=== PATIENT | female | born 1980 | race Caucasian/White ===

== ENCOUNTER 2017-06-01 07:40 | Emergency (ER) | payer OTHER ==
[~2017-06-01 07:40] MED LIST: CIPR-344 PO; FAM20 PO; FLUO-202 PO; LACT1CAP6 PO; LOR5 PO; MELO-207 PO; NAP375 PO; NAPR-744 PO; OXYC-865 PO; PER PO; PHEN-580 PO; PRE10 PO; PROM-110 PO
--- NOTE | 2017-06-01 07:43 | ER Report ---
History and Physical Time Seen By MD: 07:43 HPI/ROS CHIEF COMPLAINT: Chest pain HISTORY OF PRESENT ILLNESS: Patient is a 36-year-old female who states she has no medical problems who presents to department with left-sided chest discomfort and the sensation that she can't catch her breath. This began suddenly around 7 AM this morning. She is never experienced this before. She denies any history of heart problems. She denies fevers or chills she denies cough she does report nausea and sensation as if she has to vomit. Patient denies any ill contacts. REVIEW OF SYSTEMS: Constitutional: No fever, no chills. Eyes: No discharge. ENT: No sore throat. Cardiovascular: Chest discomfort Respiratory: Dyspnea Gastrointestinal: Nausea without abdominal pain vomiting or diarrhea Genitourinary: No hematuria. Musculoskeletal: No back pain. Skin: No rashes. Neurological: No headache. Allergies: Coded Allergies: valacyclovir (Verified Allergy, Severe, facial swelling, 06/01/17) Uncoded Allergies: ALEX (Allergy, Severe, UNABLE TO BREATHE, 04/26/07) Home Meds Active Scripts Famotidine (PEPCID) 20 Mg Tablet, 20 MG PO BID, #60 TAB 0 Refills Prov:SPEEDY SULLIVAN MD 06/01/17 Promethazine Hcl (PROMETHAZINE HCL) 25 Mg Tablet, 25 MG PO Q4H Y for NAUSEA/ VOMITING, #12 TAB Prov:MAHENDRA ANNA DO 03/30/16 Reported Medications Fluoxetine Hcl (FLUOXETINE HCL) 20 Mg Capsule, QDAY 06/01/17 Escitalopram Oxalate (ESCITALOPRAM OXALATE) 20 Mg Tablet, QDAY 06/01/17 Lactobacillus Combination No.4 (PROBIOTIC) 1 Each Capsule, 2 EACH PO DAILY, CAPSULE 03/30/16 Discontinued Reported Medications Meloxicam (MELOXICAM) 15 Mg Tablet, 15 MG PO QDAY 03/30/16 Fluoxetine Hcl (PROZAC) 20 Mg Capsule, 20 MG PO QDAY, CAPSULE 03/30/16 Discontinued Scripts Oxycodone Hcl/Acetaminophen (PERCOCET 5-325 MG TABLET) 1 Each Tablet, 1 EACH PO Q4H Y for PAIN, #12 Prov:MAHENDRA ANNA DO 03/30/16 Ciprofloxacin Hcl (CIPRO) 500 Mg Tablet, 500 MG PO BID for infection, #14 Prov:MAHENDRA ANNA DO 03/30/16 Past Medical/Surgical History Patient reports no significant past medical history Hx Smoking: Yes (1 pack daily for 15 years) Smoking Status: Former Smoker Exposure to Second Hand Smoke?: No Hx Substance Use Disorder: No Hx Alcohol Use: No Constitutional Vital Sign - Last 24 Hours 06/01/17 06/01/17 06/01/17 06/01/17 07:40 07:44 07:50 08:00 Temp 98.8 Pulse 108 88 Resp 16 22 B/P (MAP) 128/92 128/92 (104) 114/75 (88) Pulse Ox 100 69 100 O2 Delivery Room Air 06/01/17 06/01/17 06/01/17 06/01/17 08:10 08:15 08:16 08:25 Pulse 70 73 63 Resp 18 15 20 Pulse Ox 99 94 100 O2 Flow Rate 2.0 06/01/17 06/01/17 06/01/17 06/01/17 08:30 08:35 08:45 08:55 Pulse 68 62 66 Resp 13 7 8 B/P (MAP) 118/81 (93) Pulse Ox 100 100 100 06/01/17 06/01/17 06/01/17 06/01/17 09:00 09:05 09:10 09:15 Pulse 66 69 68 Resp 0 11 0 13 B/P (MAP) 119/82 (94) Pulse Ox 100 100 100 100 06/01/17 06/01/17 06/01/17 06/01/17 09:20 09:25 09:30 09:35 Pulse 62 65 65 63 Resp 0 15 11 22 B/P (MAP) 111/65 (80) Pulse Ox 100 100 100 100 06/01/17 06/01/17 06/01/17 06/01/17 09:40 09:45 09:50 09:55 Pulse 67 80 70 67 Resp 16 12 29 19 Pulse Ox 96 96 93 93 06/01/17 06/01/17 06/01/17 06/01/17 10:00 10:05 10:10 10:15 Pulse 73 72 71 75 Resp 0 0 8 8 B/P (MAP) 103/78 (86) Pulse Ox 95 94 96 96 06/01/17 06/01/17 06/01/17 10:20 10:30 10:35 Pulse 75 73 73 Resp 16 15 10 B/P (MAP) 111/76 (88) Pulse Ox 96 96 93 Physical Exam General/Constitutional: Patient is awake, alert, nontoxic and in no acute respiratory distress. Head: Normocephalic and atraumatic. Eyes: Conjunctival clear, Pupils are equal and reactive to light. Extraocular muscles are intact and symmetrical. Sclera are clear and anicteric. Ears:External canals are clear. Tympanic membranes are clear with normal landmarks and light reflex. Nares: No rhinorrhea or bleeding. Turbinates are pink and moist. Oropharyngeal: Mucous membranes are moist. Neck: Supple, no adenopathy. Cardiovascular: Heart is tachycardic but with regular rhythm. Pulmonary: Lungs are clear to auscultation bilaterally. There are no wheezes, rales, or rhonchi. Chest rise is symmetrical Abdomen: Soft, nontender, no guarding or peritoneal signs. Extremities: No gross deformities, No peripheral cyanosis. Able to move all 4 extremities. Neuro: Alert and oriented X3, Skin: No rashes, skin is warm dry and well perfused. Medical Decision Making Data Points Result Diagram: 06/01/17 0745 06/01/17 0745 Laboratory Hematology Test 06/01/17 07:45 06/01/17 10:00 Red Blood Count 4.93 M/uL (4.17-5.56) Mean Corpuscular Volume 95.4 fL (80.0-96.0) Mean Corpuscular Hemoglobin 33.3 pg (26.0-33.0) Mean Corpuscular Hemoglobin Concent 34.9 g/dL (32.0-36.0) Red Cell Distribution Width 13.9 % (11.5-14.5) Mean Platelet Volume 7.4 fL (7.2-11.1) Neutrophils (%) (Auto) 53.6 % (39.4-72.5) Lymphocytes (%) (Auto) 37.1 % (17.6-49.6) Monocytes (%) (Auto) 7.5 % (4.1-12.4) Eosinophils (%) (Auto) 1.1 % (0.4-6.7) Basophils (%) (Auto) 0.7 % (0.3-1.4) Nucleated RBC Relative Count (auto) 0.0 /100WBC Neutrophils # (Auto) 5.2 K/uL (2.0-7.4) Lymphocytes # (Auto) 3.6 K/uL (1.3-3.6) Monocytes # (Auto) 0.7 K/uL (0.3-1.0) Eosinophils # (Auto) 0.1 K/uL (0.0-0.5) Basophils # (Auto) 0.1 K/uL (0.0-0.1) Nucleated RBC Absolute Count (auto) 0.00 K/uL Prothrombin Time 13.2 seconds (12.0-14.4) Prothromb Time International Ratio 1.00 Activated Partial Thromboplast Time 25 seconds (23-35) Sodium Level 139 mmol/L (137-145) Potassium Level 3.4 mmol/L (3.5-5.0) Chloride Level 102 mmol/L (98-107) Carbon Dioxide Level 20 mmol/L (22-31) Blood Urea Nitrogen 18 mg/dl (7-18) Creatinine 1.00 mg/dl (0.52-1.04) Glomerular Filtration Rate Calc > 60.0 Random Glucose 109 mg/dl (75-110) Calcium Level 9.7 mg/dl (8.4-10.2) Total Bilirubin 0.9 mg/dl (0.2-1.3) Aspartate Amino Transf (AST/SGOT) 29 U/L (0-35) Alanine Aminotransferase (ALT/SGPT) 34 U/L (0-56) Alkaline Phosphatase 73 U/L (0-126) Total Protein 8.5 gm/dl (6.3-8.2) Albumin 4.9 g/dl (3.5-5.0) Human Chorionic Gonadotropin, Qual Negative (NEGATIVE) Troponin I < 0.012 ng/ml Chemistry Test 06/01/17 07:45 06/01/17 10:00 White Blood Count 9.7 k/uL (4.5-11.0) Red Blood Count 4.93 M/uL (4.17-5.56) Hemoglobin 16.4 g/dL (12.0-16.0) Hematocrit 47.0 % (34.0-47.0) Mean Corpuscular Volume 95.4 fL (80.0-96.0) Mean Corpuscular Hemoglobin 33.3 pg (26.0-33.0) Mean Corpuscular Hemoglobin Concent 34.9 g/dL (32.0-36.0) Red Cell Distribution Width 13.9 % (11.5-14.5) Platelet Count 436 K/uL (150-450) Mean Platelet Volume 7.4 fL (7.2-11.1) Neutrophils (%) (Auto) 53.6 % (39.4-72.5) Lymphocytes (%) (Auto) 37.1 % (17.6-49.6) Monocytes (%) (Auto) 7.5 % (4.1-12.4) Eosinophils (%) (Auto) 1.1 % (0.4-6.7) Basophils (%) (Auto) 0.7 % (0.3-1.4) Nucleated RBC Relative Count (auto) 0.0 /100WBC Neutrophils # (Auto) 5.2 K/uL (2.0-7.4) Lymphocytes # (Auto) 3.6 K/uL (1.3-3.6) Monocytes # (Auto) 0.7 K/uL (0.3-1.0) Eosinophils # (Auto) 0.1 K/uL (0.0-0.5) Basophils # (Auto) 0.1 K/uL (0.0-0.1) Nucleated RBC Absolute Count (auto) 0.00 K/uL Prothrombin Time 13.2 seconds (12.0-14.4) Prothromb Time International Ratio 1.00 Activated Partial Thromboplast Time 25 seconds (23-35) Glomerular Filtration Rate Calc > 60.0 Calcium Level 9.7 mg/dl (8.4-10.2) Total Bilirubin 0.9 mg/dl (0.2-1.3) Aspartate Amino Transf (AST/SGOT) 29 U/L (0-35) Alanine Aminotransferase (ALT/SGPT) 34 U/L (0-56) Alkaline Phosphatase 73 U/L (0-126) Total Protein 8.5 gm/dl (6.3-8.2) Albumin 4.9 g/dl (3.5-5.0) Human Chorionic Gonadotropin, Qual Negative (NEGATIVE) Troponin I < 0.012 ng/ml Coagulation Test 06/01/17 07:45 Prothrombin Time 13.2 seconds Prothromb Time International Ratio 1.00 Activated Partial Thromboplast Time 25 seconds EKG/Imaging EKG Interpretation EKG shows normal sinus rhythm with a ventricular rate of 82 bpm. No significant evidence of ST segment or T-wave abnormalities. There is no prior EKG to compare to Monitor Interpretation: Normal Sinus Rhythm Imaging FACILITY: [facility] [place] PATIENT NAME: Mica Meehan : 1980 MR: [id number] V: [id number] EXAM DATE: ORDERING PHYSICIAN: SPEEDY SULLIVAN TECHNOLOGIST: Location: [facility] Patient: Mica Meehan : 1980 Visit/Account:[id number] Date of Sevice: 06/01/2017 CHEST PA AND LAT History: Chest pain Comparison none. FINDINGS: Lungs are clear, no effusion. No pneumothorax. Heart size within normal limits. Mediastinal contour within normal limits. IMPRESSION: No evidence of acute cardiopulmonary disease. Report Dictated By: Maximiliano Arguello MD at 06/01/2017 8:19 AM Report E-Signed By: Maximiliano Arguello MD at 06/01/2017 8:19 AM WSN:[id number] ED Course/Re-evaluation Clinical Indication for ER IV: IV Access ED Course 06/01/2017 7:55:51 am patient appears quite anxious and is tachycardic with a heart rate in the 120s. Patient with a sensation that she can't catch her breath. Plan at this time will be cardiac workup we will give IV Ativan to help with anxiety and IV Zofran at this time for nausea. 06/01/2017 9:56:52 am patient had significant improvement after GI cocktail. We are repeating the troponin at 10 AM and disposition will be based on blood test Re-evaluation 06/01/2017 8:31:19 am patient feeling improved after Zofran and Ativan. Awaiting blood work results Decision to Disposition Date: Jun 01, 2017 Decision to Disposition Time: 10:50 Depart Departure Latest Vital Signs Vital Signs Date Time Temp Pulse Resp B/P (MAP) Pulse Ox O2 Delivery O2 Flow Rate FiO2 06/01/17 10:35 73 10 93 06/01/17 10:30 111/76 (88) 06/01/17 08:16 2.0 06/01/17 07:40 98.8 Room Air Impression: Primary Impression: GERD with esophagitis Condition: Improved Disposition: HOME OR SELF-CARE Referrals: OLIVIA TAVERA DO (PCP) 2 Weeks New Scripts Famotidine (PEPCID) 20 Mg Tablet 20 MG PO BID, #60 TAB 0 Refills Prov: SPEEDY SULLIVAN MD 06/01/17 Patient Instructions: Gastroenteritis in Children (GEN) Additional Instructions: Start your Pepcid and take as directed. I also suggest that you go to a pharmacy and picking tech either Maalox or Mylanta or some type of oral antacid and when your symptoms begin to take this medication as directed. SPEEDY SULLIVAN MD Jun 01, 2017 07:43
[2017-06-01] MEDS ORDERED: ESCI20TA8 (07:45)
[2017-06-01] MEDS ORDERED: FLUO-177 (07:45)
[2017-06-01] MEDS ORDERED: ASPIRIN 81 MG CHEW PO ONE (07:50)
[2017-06-01] MEDS ORDERED: LORazepam 2 MG/ML VIAL IVP ONE (07:55)
[2017-06-01] MEDS ORDERED: ONDANSETRON 4 MG/2 ML VIAL IVP ONE (07:55)
[2017-06-01 08:02] LABS: PLATELET COUNT, AUTOMATED 436 K/uL (150-450)
--- NOTE | 2017-06-01 08:24 | RADIOLOGY IMAGING REPORT ---
FACILITY: [facility] PATIENT NAME: Mica Meehan : 1980 MR: [id number] V: [id number] EXAM DATE: ORDERING PHYSICIAN: SPEEDY SULLIVAN TECHNOLOGIST: Location: [facility] [place] Patient: Mica Meehan : 1980 Visit/Account:[id number] Date of Sevice: 06/01/2017 CHEST PA AND LAT History: Chest pain Comparison none. FINDINGS: Lungs are clear, no effusion. No pneumothorax. Heart size within normal limits. Mediastinal contour w ithin normal limits. IMPRESSION: No evidence of acute cardiopulmonary disease. Report Dictated By: Maximiliano Arguello MD at 06/01/2017 8:19 AM Report E-Signed By: Maximiliano Arguello MD at 06/01/2017 8:19 AM WSN:[id number]
--- NOTE | 2017-06-01 08:25 | EKG ---
FACILITY: [facility] PATIENT NAME: MELITA SWENSON : [id number] MR: [id number] V: [id number] EXAM DATE: ORDERING PHYSICIAN: SPEEDY SULLIVAN TECHNOLOGIST: SHELBI Meier Reason : CP Blood Pressure : / mmHG Vent. Rate : 082 BPM Atrial Rate : 082 BPM P-R Int : 106 ms QRS Dur : 094 ms QT Int : 394 ms P-R-T Axes : 041 072 027 degrees QTc Int : 460 ms Sinus rhythm with short NE Incomplete right bundle branch block Prolonged QT Abnormal ECG No previous ECGs available Confirmed by LEONARDO ACKERMAN ([id number]) on 06/01/2017 11:44:20 AM Referred By: LAURIE Confirmed By:LEONARDO ACKERMAN
[2017-06-01] MEDS ORDERED: MAG HYD/AL HYD/SIMETH 30ML UDC PO ONE (08:50)
[2017-06-01] MEDS ORDERED: FAMO20TA28 PO (10:16)
[2017-06-01 10:30] VITALS: BP 111/76
== END 2017-06-01 10:52 | disposition home or self-care (01) ==
LOC: ER 07:44
DX: K21.0 Gastro-esophageal reflux disease with esophagitis (principal); R94.31 Abnormal electrocardiogram [ECG] [EKG]; I45.10 Unspecified right bundle-branch block
CPT/HCPCS: 71046; 84484; 84703; 85025; 85610; 85730; 93005; 96374; 96375; 99284; J2060; J2405; 82040; 82247; 82310; 82374; 82435; 82565; 82947; 84075; 84132; 84155; 84295; 84450; 84460; 84520

== ENCOUNTER 2017-10-09 01:31 | Day surgery (SDC) | payer OTHER ==
[~2017-10-09] VITALS: Ht 162.6 cm; Wt 73.5 kg
[~2017-10-09 01:31] MED LIST changes: +ARMTHY90PT PO; +ESCI20TA8; +FAMO20TA28 PO; +FLUO-177; +PHEN1CPM2 PO
[2017-10-09] MEDS: FAMOTIDINE 20 MG TAB PO ONE ×2 (07:25→07:40)
[2017-10-09 07:40] VITALS: BP 101/49
[2017-10-09] MEDS ORDERED: LIDOCAINE/SOD BICARB 8.4% SYR ID ONE (07:40)
[2017-10-09] MEDS ORDERED: NORMOSOL R SOLN(*) 1000 ML BAG 1,000 ML IV PRN (07:40)
[2017-10-09] MEDS ORDERED: MIDAZOLAM 2 MG/2 ML VIAL IVP PRN (07:40)
[2017-10-09] MEDS ORDERED: FAMOTIDINE(*) 20MG/50ML PREMIX 50 ML IVPB ONE (07:55)
[2017-10-09 08:16] LABS: PLATELET COUNT, AUTOMATED 345 K/uL (150-450)
[2017-10-09] MEDS ORDERED: fentaNYL CITR 100 MCG/2 ML AMP ONE (08:20)
[2017-10-09] MEDS ORDERED: ONDANSETRON 4 MG/2 ML VIAL ONE (08:21)
[2017-10-09] MEDS ORDERED: PROPOFOL EMUL(*) 10MG/ML 20 ML 20 ML ONE (08:21)
[2017-10-09] MEDS ORDERED: DEXAMETHASONE SOD PHOS 10MG/ML ONE (08:21)
[2017-10-09] MEDS ORDERED: MIDAZOLAM 2 MG/2 ML VIAL ONE (08:21)
[2017-10-09] MEDS ORDERED: LR(*) 1000 ML BAG 1,000 ML IV ONE (09:24)
[2017-10-09] MEDS ORDERED: APAP/HYDROCODONE 325/5 TAB PO PRN (09:25)
[2017-10-09] MEDS ORDERED: LOR5/325 PO (09:32)
--- NOTE | 2017-10-09 09:34 | Short(Outpt) Discharge Summary ---
Discharge Summary Reason for Hosp/Final Diag: (1) Menorrhagia Hospital Course & Plan: s/p Novasure ablation (2) Dysmenorrhea Departure Discharge to: Home, Self Care Discharge Instructions Home Meds Active Scripts Hydrocodone Bit/Acetaminophen (HYDROCODON-ACETAMINOPHEN 5-325) 1 Each Tablet, 1 EACH PO Q4H Y for PAIN, #10 TAB 0 Refills Prov:SAE SCHWARZ MD 10/09/17 Reported Medications Phentermine/Topiramate (QSYMIA 7.5 MG-46 MG CAPSULE) 1 Each Cpmp.24hr, 1 EACH PO DAILY 09/24/17 Thyroid (ARMOUR THYROID) 90 Mg Tab, 90 MG PO DAILY, TAB 09/24/17 Fluoxetine Hcl (FLUOXETINE HCL) 20 Mg Capsule, QDAY 06/01/17 Follow up Referrals: [facility] - In Two Weeks @ [facility] with Sae Schwarz Md Diet: Regular Activity: As Tolerated Copies to: SAE SCHWARZ MD Problem Qualifiers (1) Menorrhagia: Menorrahagia type: with irregular cycle Qualified Codes: N92.1 - Excessive and frequent menstruation with irregular cycle SAE SCHWARZ MD Oct 09, 2017 09:34
[2017-10-09 09:55] VITALS: BP 107/65
--- NOTE | 2017-10-09 10:16 | OPERATIVE REPORT 1 ---
EVENT DATE: October 09, 2017 SURGEON: Sae Schwarz MD ANESTHESIOLOGIST: ANESTHESIA: General LMA PREOPERATIVE DIAGNOSIS 1. Menorrhagia. 2. Secondary dysmenorrhea. POSTOPERATIVE DIAGNOSIS 1. Menorrhagia. 2. Secondary dysmenorrhea. PROCEDURE PERFORMED 1. Hysteroscopic NovaSure endometrial ablation. ESTIMATED BLOOD LOSS Minimal. FLUIDS IV Crystalloid FINDINGS Uterus was sounded to a depth of 8.5 cm. The cervical length as measured with the hysteroscope 4 cm, making a cavity dimension of 4.5 cm x 4.3 cm on the width measured by the NovaSure device. This created a power setting of 106 and total ablative time of 75 seconds, and fluid deficit of 110 cc. PROCEDURE IN DETAIL The patient was brought to the operating room with a working IV, placed in the dorsal supine position on the operating table, and placed under General LMA anesthesia. She was then moved to the dorsal lithotomy position, prepped and draped in the usual sterile fashion. A weighted speculum was placed in the vagina. The cervix was grasped on the anterior lip with a single-toothed tenaculum. The uterus was sounded to a depth of 8.5 cm. The cervix was then dilated to a size 5 Hegar dilator. The diagnostic hysteroscope was assembled and passed through the cervix into the uterus and the cavity was inspected. There was a uniform endometrial cavity with no visible deficits, protrusions, polyps or fibroids. The tubal ostia were visualized and normal. The tip of the scope was placed at the endocervix and the remaining scope was used to measure the length of the cervix at 4 cm. The cervix was then further dilated to a size 8 Hegar dilator and the NovaSure device locked at a depth of 4.5 cm was passed through the cervix into the uterus. The array was fully extended and locked into place. It was rocked about in order to seat the tips into the corners of the uterus and a width of 4.3 cm was measured and programed into the NovaSure controller. The plunger was approximated against the cervix, and a cavity assessment was performed and passed. The device was therefore enabled and activated with a total ablative time of 75 seconds before automatic shutoff. The device was then removed. The diagnostic hysteroscope was again performed. A uniform burn throughout the endometrial cavity was observed with no visible deficits, and extending all the way to the cervical os. No complications. All instruments were then removed from the vagina. No active bleeding and fluid deficit of 110 cc was documented. The patient was returned to the dorsal supine position, awakened from anesthesia in stable condition and taken to recovery. Sponge, laps, needle, and instrument counts were all correct. MTDD
[2017-10-09 10:23] VITALS: BP 108/71
[2017-10-09 10:53] VITALS: BP 110/71
[2017-10-09] MEDS ORDERED: IBUPROFEN 800 MG TAB PO SCH (11:00)
[2017-10-09] MEDS ORDERED: APAP/HYDROCODONE 325/5 TAB PO ONE (11:20)
[2017-10-09 11:30] VITALS: BP 116/60
[2017-10-09 11:34] VITALS: BP 114/57
== END 2017-10-09 09:55 | disposition home or self-care (01) ==
LOC: OR 01:31
PROVIDERS: ATTEND Obstetrics & Gynecology
DX: N92.0 Excessive and frequent menstruation with regular cycle (principal); N94.6 Dysmenorrhea, unspecified
CPT/HCPCS: 36415; 58563; 84703; 85025; J1100; J2250; J2405; J2704; J3010; J3490

== ENCOUNTER → 2017-11-20 | Outpatient (CLI) | payer OTHER ==
[~2017-11-20] MED LIST changes: +LOR5/325 PO
--- NOTE | 2017-11-23 09:56 | RADIOLOGY IMAGING REPORT ---
FACILITY: [facility] PATIENT NAME: MICA SWENSON : [id number] MR: [id number] V: [id number] EXAM DATE: [id number] ORDERING PHYSICIAN: LEONARDO ADAMS TECHNOLOGIST: Mica Rodgers PROCEDURE:BILATERAL DIGITAL SCREENING MAMMOGRAM WITH CAD ASSISTED INTERPRETATION & 3D TOMOSYNTHESIS COMPARISON:Prior mammograms 10/04/13. INDICATIONS:SCREENING FINDINGS: Dense heterogeneous fibroglandular tissue is seen throughout the breasts. Biopsy clip in the lobular mass upper outer quadrant of the Left breast is seen. 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 In the upper medial portion of the Left breast in the middle 1/3 is an additional relatively well circumscribed mass best seen on Tomographic slice 52 on the Left CC view and Tomographic slice 55 on the Left MLO view. Left breast Ultrasound recommended for further evaluation. DIAGNOSTIC CATEGORY 0--INCOMPLETE: NEED ADDITIONAL IMAGING EVALUATION. RECOMMENDATIONS: ULTRASOUND: LEFT BREAST. IMPRESSION: BIRADS 0: Incomplete. Left breast Ultrasound recommended. Dictated by: Polly Thomas M.D. on 11/23/2017 at 9:46 Transcribed by: KENN on 11/23/2017 at 9:52 Approved by: Polly Thomas M.D. on 11/23/2017 at 9:55 [facility]
== END ==
LOC: MAMO 11-18 14:58
PROVIDERS: ATTEND Family Medicine
DX: R92.2 Inconclusive mammogram (principal); Z80.3 Family history of malignant neoplasm of breast
CPT/HCPCS: 77063; 77067

== ENCOUNTER 2017-12-31 01:23 | Day surgery (SDC) | payer OTHER ==
[~2017-12-31] VITALS: Ht 162.6 cm; Wt 71.2 kg
[~2017-12-31 01:23] MED LIST changes: +CHOL10005 PO; +LYSI500T34 PO; +OMEG-11 PO
[2017-12-31] MEDS ORDERED: LIDOCAINE/SOD BICARB 8.4% SYR ID ONE (10:15)
[2017-12-31] MEDS ORDERED: NORMOSOL R SOLN(*) 1000 ML BAG 1,000 ML IV PRN (10:15)
[2017-12-31] MEDS ORDERED: PROPOFOL EMUL(*) 10MG/ML 20 ML 40 ML ONE (10:40)
[2017-12-31 10:49] VITALS: BP 103/49
[2017-12-31 12:23] VITALS: BP 97/55
[2017-12-31 12:45] VITALS: BP 90/52
[2017-12-31 12:57] VITALS: BP_SYST 93; BP_SYST 95; BP_DIAS 66; BP_DIAS 67
== END 2017-12-31 13:15 | disposition home or self-care (01) ==
LOC: OR 01:23
PROVIDERS: ATTEND Family Medicine
DX: Z12.11 Encounter for screening for malignant neoplasm of colon (principal); E03.9 Hypothyroidism, unspecified; F17.210 Nicotine dependence, cigarettes, uncomplicated; F32.9 Major depressive disorder, single episode, unspecified; Z80.0 Family history of malignant neoplasm of digestive organs
CPT/HCPCS: 00812; 45378; J2704

== ENCOUNTER → 2018-01-26 | Outpatient (CLI) | payer OTHER ==
[~2018-01-26] MED LIST changes: +GADOBENATE 529MG/1ML 15ML VIAL IVP ONE
--- NOTE | 2018-01-26 16:35 | RADIOLOGY IMAGING REPORT ---
[place] [facility] [place]IENT NAME: Mica Meehan : 1980 MR: [id number] V: [id number] EXAM DATE: ORDERING PHYSICIAN: ADELE SHAVER TECHNOLOGIST: [place] [facility] [place]ica Meehan : 1980 Visit/Account:[id number] Date of Sevice: 01/26/2018 BRAIN MR W W/O CONTRAST Memory loss ADDITIONAL PERTINENT HISTORY: None. COMPARISON STUDIES: None. TECHNIQUE: Multi-planar, multi-sequence brain MRI was performed with and without IV contrast adminis tration. Contrast: 15 mL MultiHance FINDINGS: Ventricles / sulci / fissures: Negative. Masses / hemorrhage / midline shift: Negative. White matter: Negative. Lawrence-white differentiation: Normal. Extra-axial fluid collections: Negative. Intracranial vasculature and dural sinuses: Negative. Skull base / calvarium: Negative. Visualized mastoid air cells / paranasal sinuses: Well aerated. Orbits: Negative. Upper neck:Negative. IMPRESSION: Unremarkable MR the brain with and without contrast Report Dictated By: Polly Thomas MD at 01/26/2018 4:27 PM Report E-Signed By: Polly Thomas MD at 01/26/2018 4:30 PM WSN:[email or web address]
== END ==
LOC: US 01-22 04:29 → MRI 01:00
PROVIDERS: ATTEND Nurse Practitioner Family
DX: R41.3 Other amnesia (principal)
CPT/HCPCS: 70553; A9577

== ENCOUNTER → 2018-02-12 | Outpatient (CLI) | payer OTHER ==
[~2018-02-12] MED LIST changes: -GADOBENATE 529MG/1ML 15ML VIAL IVP ONE
--- NOTE | 2018-02-15 11:22 | RADIOLOGY IMAGING REPORT ---
[place] [facility] [place] MELITA SWENSON : [id number] MR: [id number] V: [id number] EXAM DATE: [id number] ORDERING PHYSICIAN: LEONARDO ADAMS TECHNOLOGIST: Daniel Shafer RDMS, [facility] PROCEDURE:US LEFT BREAST COMPARISON:Prior Left mammogram 11/20/17. Prior Left breast Ultrasound 10/04/13. INDICATIONS:ABNORMAL MAMMO FINDINGS: In the 10:30 position of the Left breast 5cm from the nipple there is a circumscribed solid hypoechoic parallel mass measuring 1.35 x 0.97 x 1.75cm with a small amount of acoustic enhancement. This likely accounts for the recent mammographic findings. In the 2 o'clock position of the Left breast 3cm from the nipple again noted is the ovoid parallel circumscribed hypoechoic mass with a biopsy clip in place. This mass measures 2.5 x 1.9 x 2.1cm and actually appears smaller when compared to the prior breast Ultrasound. The previous biopsy results were consistent with a fibroadenoma. In the Left axilla is an incidental 1cm ovoid lymph node. In the 1:30 position of the Left breast there is a 1.3 x 0.8 x 0.9cm ovoid well circumscribed parallel hypoechoic mass. DIAGNOSTIC CATEGORY 3--PROBABLY BENIGN FINDING. RECOMMENDATIONS: SIX MONTH FOLLOW-UP ULTRASOUND: LEFT BREAST. IMPRESSION: BIRADS 3: Probably benign finding. Previously biopsied solid oval circumscribed mass in the 2:30 position of the Left breast actually appears smaller when compared to the prior study. There are 2 new well circumscribed hypoechoic masses 1 in the 1:30 position of the Left breast and 1 in the 10:30 position of the Left breast which may represent additional fibroadenoma. A 6 month follow-up Left breast Ultrasound is recommended. Dictated by: Polly Thomas M.D. on 02/12/2018 at 12:58 Transcribed by: KENN on 02/12/2018 at 13:28 Approved by: Polly Thomas M.D. on 02/15/2018 at 11:21 [facility]
== END ==
LOC: MAMO 02:39
PROVIDERS: ATTEND Family Medicine
DX: N63.22 Unspecified lump in the left breast, upper inner quadrant (principal); N63.21 Unspecified lump in the left breast, upper outer quadrant

== ENCOUNTER 2018-05-17 15:08 | Emergency (ER) | payer OTHER ==
[2018-05-17] MEDS ORDERED: NS(*) 0.9% 1000 ML BAG 1,000 ML IV ONE (15:27)
[2018-05-17] MEDS ORDERED: KETOROLAC 30 MG/ML VIAL IVP ONE (15:30)
--- NOTE | 2018-05-17 15:36 | ER Report ---
History and Physical Time Seen By MD: 15:23 Hx. of Stated Complaint: PATIENT REPORTS RIGHT SIDED FLANK PAIN THAT WAS GOING ON SINCE THURSDAY. WENT TO THE CHIROPRACTOR AND WAS TOLD IT WAS NOT MUSCULAR HPI/ROS CHIEF COMPLAINT: Right back pain HISTORY OF PRESENT ILLNESS: Patient is a 37 year old female presenting to the ED with right back pain. Started on Thursday morning, woke up with the pain. Patient took a muscle relaxant and it did not affect the pain at all. Patient then alternated heat and ice throughout the weekend. Patient went to her chiropractor this morning. Chiropractor told her that it was not musclos keletal. Patient then finished her shift and came to the ED. Pain is sharp and constant. Pain is an 8/10. Patient states there is nothing seems to make the pain better or worse. She denies any worsening pain with eating. She states she is not had any nausea, vomiting or diarrhea. REVIEW OF SYSTEMS: Respiratory: No cough, no dyspnea. Cardiovascular: No chest pain, no palpitations. Gastrointestinal: No vomiting, no abdominal pain, pain with urination. Musculoskeletal: See above Allergies: Coded Allergies: valacyclovir (Verified Allergy, Severe, facial swelling, 12/29/17) pork derived (porcine) (Verified Adverse Reaction, Intermediate, NAUSEA VOMITING , 12/29/17) Uncoded Allergies: ALEX (Allergy, Severe, UNABLE TO BREATHE, 04/26/07) HIBICUS (Adverse Reaction, Severe, HIVES, 12/29/17) Home Meds Active Scripts Tramadol Hcl (TRAMADOL HCL) 50 Mg Tablet, 50 MG PO Q4-6H PRN for PAIN, #12 TAB Prov:RASHMI MACHUCA MANAGEMENT ENGINEER 05/17/18 Reported Medications Cholecalciferol (Vitamin D3) (VITAMIN D3) 1,000 Unit Tablet, 2000 UNIT PO, TAB 12/29/17 Platter-3 Fatty Acids/Fish Oil (FISH OIL 1,000 MG CAPSULE) 1 Each Capsule, 1 EACH PO, CAPSULE 12/29/17 Thyroid (ARMOUR THYROID) 90 Mg Tab, 90 MG PO DAILY, TAB 09/24/17 Discontinued Reported Medications Lysine (LYSINE) 500 Mg Tablet, 500 MG PO 12/29/17 Phentermine/Topiramate (QSYMIA 7.5 MG-46 MG CAPSULE) 1 Each Cpmp.24hr, 1 EACH PO 12/29/17 Fluoxetine Hcl (FLUOXETINE HCL) 20 Mg Capsule, QDAY 06/01/17 Past Medical/Surgical History Patient has a past medical history of hypothyroidism, alcohol use, depression. Patient has a surgical history of 2, tummy tuck, uterine ablation, tubal ligation, LASIK eye surgery. Patient has a family medical history of cancer. Reviewed Nurses Notes: Yes Hx Smoking: Yes (1 pack daily for 15 years) Smoking Status: Former Smoker Exposure to Second Hand Smoke?: No Hx Substance Use Disorder: No Hx Alcohol Use: Yes Constitutional Vital Sign - Last 24 Hours 05/17/18 05/17/18 05/17/18 05/17/18 15:14 15:14 15:23 15:38 Temp 98.0 Pulse 84 77 64 Resp 16 B/P (MAP) 117/72 (87) 107/68 (81) Pulse Ox 96 96 97 O2 Delivery Room Air 05/17/18 05/17/18 05/17/18 05/17/18 16:00 16:08 16:23 16:30 Pulse 68 72 B/P (MAP) 95/61 (72) 103/51 (68) Pulse Ox 98 99 05/17/18 05/17/18 05/17/18 05/17/18 16:53 17:00 17:15 17:30 Pulse 61 64 54 55 B/P (MAP) 110/64 (79) 84/50 (61) Pulse Ox 96 96 95 97 05/17/18 05/17/18 05/17/18 05/17/18 17:45 18:00 18:15 18:30 Pulse 59 57 66 58 B/P (MAP) 103/64 (77) 94/62 (73) Pulse Ox 95 95 100 97 05/17/18 05/17/18 05/17/18 05/17/18 18:45 19:00 19:15 19:30 Pulse 81 64 67 60 B/P (MAP) 125/48 (73) Pulse Ox 92 98 97 94 Physical Exam General Appearance: The patient is alert, has no immediate need for airway protection and no current signs of toxicity. Respiratory: Chest is non tender, lungs are clear to auscultation. Cardiac: Regular rate and rhythm. No murmurs, clicks or rubs noted. Gastrointestinal: Abdomen is soft and non tender, no masses, bowel sounds normal. Musculoskeletal: Neck: Neck is supple and non tender. Extremities have full range of motion and are non tender. Skin: No rashes or lesions. DIFFERENTIAL DIAGNOSIS: After history and physical exam differential diagnosis was considered for pulmonary embolism, nephrolithiasis, cholecystitis, herpes zoster and costochondritis. Medical Decision Making Data Points Result Diagram: 05/17/18 1534 05/17/18 1534 Laboratory Hematology Test 05/17/18 15:12 05/17/18 15:34 Urine Color Yellow Urine Clarity Slightly-cloudy Urine pH 5.0 pH (4.8-9.5) Urine Specific [place] 1.019 Urine Protein Negative mg/dL (NEGATIVE) Urine Glucose (UA) Negative mg/dL (NEGATIVE) Urine Ketones Negative mg/dL (NEGATIVE) Urine Blood Negative (NEGATIVE) Urine Nitrite Negative (NEGATIVE) Urine Bilirubin Negative (NEGATIVE) Urine Urobilinogen Negative mg/dL (0.2-1.9) Urine Leukocyte Esterase Small (NEGATIVE) Urine RBC 1 /HPF (0-2/HPF) Urine WBC 1 /HPF (0-5/HPF) Urine Squamous Epithelial Cells Many /LPF (</=FEW) Urine Bacteria Few /HPF (NONE-FEW) Urine Mucus None /HPF (NONE-FEW) Red Blood Count 4.30 M/uL (4.17-5.56) Mean Corpuscular Volume 94.0 fL (80.0-96.0) Mean Corpuscular Hemoglobin 31.8 pg (26.0-33.0) Mean Corpuscular Hemoglobin Concent 33.9 g/dL (32.0-36.0) Red Cell Distribution Width 13.5 % (11.5-14.5) Mean Platelet Volume 7.8 fL (7.2-11.1) Neutrophils (%) (Auto) 63.8 % (39.4-72.5) Lymphocytes (%) (Auto) 29.1 % (17.6-49.6) Monocytes (%) (Auto) 6.2 % (4.1-12.4) Eosinophils (%) (Auto) 0.3 % (0.4-6.7) Basophils (%) (Auto) 0.6 % (0.3-1.4) Nucleated RBC Relative Count (auto) 0.0 /100WBC Neutrophils # (Auto) 4.9 K/uL (2.0-7.4) Lymphocytes # (Auto) 2.2 K/uL (1.3-3.6) Monocytes # (Auto) 0.5 K/uL (0.3-1.0) Eosinophils # (Auto) 0.0 K/uL (0.0-0.5) Basophils # (Auto) 0.0 K/uL (0.0-0.1) Nucleated RBC Absolute Count (auto) 0.00 K/uL Erythrocyte Sedimentation Rate 4 mm/HOUR (0-20) Sodium Level 139 mmol/L (137-145) Potassium Level 3.7 mmol/L (3.5-5.0) Chloride Level 107 mmol/L (98-107) Carbon Dioxide Level 23 mmol/L (22-31) Blood Urea Nitrogen 11 mg/dl (7-18) Creatinine 0.70 mg/dl (0.52-1.04) Glomerular Filtration Rate Calc > 60.0 Random Glucose 84 mg/dl (75-110) Calcium Level 9.3 mg/dl (8.4-10.2) Total Bilirubin 0.6 mg/dl (0.2-1.3) Aspartate Amino Transf (AST/SGOT) 14 U/L (0-35) Alanine Aminotransferase (ALT/SGPT) 29 U/L (0-56) Alkaline Phosphatase 53 U/L (0-126) C-Reactive Protein 1.1 mg/dl (<1.0) Total Protein 6.3 g/dl (6.3-8.2) Albumin 3.9 g/dl (3.5-5.0) Chemistry Test 05/17/18 15:12 05/17/18 15:34 Urine Color Yellow Urine Clarity Slightly-cloudy Urine pH 5.0 pH (4.8-9.5) Urine Specific [place] 1.019 Urine Protein Negative mg/dL (NEGATIVE) Urine Glucose (UA) Negative mg/dL (NEGATIVE) Urine Ketones Negative mg/dL (NEGATIVE) Urine Blood Negative (NEGATIVE) Urine Nitrite Negative (NEGATIVE) Urine Bilirubin Negative (NEGATIVE) Urine Urobilinogen Negative mg/dL (0.2-1.9) Urine Leukocyte Esterase Small (NEGATIVE) Urine RBC 1 /HPF (0-2/HPF) Urine WBC 1 /HPF (0-5/HPF) Urine Squamous Epithelial Cells Many /LPF (</=FEW) Urine Bacteria Few /HPF (NONE-FEW) Urine Mucus None /HPF (NONE-FEW) White Blood Count 7.7 k/uL (4.5-11.0) Red Blood Count 4.30 M/uL (4.17-5.56) Hemoglobin 13.7 g/dL (12.0-16.0) Hematocrit 40.4 % (34.0-47.0) Mean Corpuscular Volume 94.0 fL (80.0-96.0) Mean Corpuscular Hemoglobin 31.8 pg (26.0-33.0) Mean Corpuscular Hemoglobin Concent 33.9 g/dL (32.0-36.0) Red Cell Distribution Width 13.5 % (11.5-14.5) Platelet Count 374 K/uL (150-450) Mean Platelet Volume 7.8 fL (7.2-11.1) Neutrophils (%) (Auto) 63.8 % (39.4-72.5) Lymphocytes (%) (Auto) 29.1 % (17.6-49.6) Monocytes (%) (Auto) 6.2 % (4.1-12.4) Eosinophils (%) (Auto) 0.3 % (0.4-6.7) Basophils (%) (Auto) 0.6 % (0.3-1.4) Nucleated RBC Relative Count (auto) 0.0 /100WBC Neutrophils # (Auto) 4.9 K/uL (2.0-7.4) Lymphocytes # (Auto) 2.2 K/uL (1.3-3.6) Monocytes # (Auto) 0.5 K/uL (0.3-1.0) Eosinophils # (Auto) 0.0 K/uL (0.0-0.5) Basophils # (Auto) 0.0 K/uL (0.0-0.1) Nucleated RBC Absolute Count (auto) 0.00 K/uL Erythrocyte Sedimentation Rate 4 mm/HOUR (0-20) Glomerular Filtration Rate Calc > 60.0 Calcium Level 9.3 mg/dl (8.4-10.2) Total Bilirubin 0.6 mg/dl (0.2-1.3) Aspartate Amino Transf (AST/SGOT) 14 U/L (0-35) Alanine Aminotransferase (ALT/SGPT) 29 U/L (0-56) Alkaline Phosphatase 53 U/L (0-126) C-Reactive Protein 1.1 mg/dl (<1.0) Total Protein 6.3 g/dl (6.3-8.2) Albumin 3.9 g/dl (3.5-5.0) Urinalysis Test 05/17/18 15:12 Urine Color Yellow Urine Clarity Slightly-cloudy Urine pH 5.0 pH (4.8-9.5) Urine Specific [place] 1.019 Urine Protein Negative mg/dL (NEGATIVE) Urine Glucose (UA) Negative mg/dL (NEGATIVE) Urine Ketones Negative mg/dL (NEGATIVE) Urine Blood Negative (NEGATIVE) Urine Nitrite Negative (NEGATIVE) Urine Bilirubin Negative (NEGATIVE) Urine Urobilinogen Negative mg/dL (0.2-1.9) Urine Leukocyte Esterase Small (NEGATIVE) Urine RBC 1 /HPF (0-2/HPF) Urine WBC 1 /HPF (0-5/HPF) Urine Squamous Epithelial Cells Many /LPF (</=FEW) Urine Bacteria Few /HPF (NONE-FEW) Urine Mucus None /HPF (NONE-FEW) EKG/Imaging EKG Interpretation 12 lead EKG: Rhythm: normal sinus rhythm with ventricular rate 60 bpm [place]: normal QRS: normal ST segments: normal Imaging Exam type: CHEST PA LAT History: Right-sided back pain Comparison: June 01, 2017. Findings: The lungs are free of acute effusions, infiltrates or edema. The cardiac silhouette is normal in size. Trachea is in midline. There Is a gentle dextroconvex scoliosis to the thoracic spine IMPRESSION: 1. No acute cardiopulmonary process is seen Report Dictated By: Polly Thomas MD at 05/17/2018 4:08 PM Report E-Signed By: Polly Thomas MD at 05/17/2018 4:[address] ABDOMEN PELVIS W/ CON HISTORY: right flank pain TECHNIQUE: Following administration of IV contrast contiguous axial images acquired through the abdomen/pelvis. Coronal and sagittal reformatting also performed.Dose Lowering Technique One of the following dose optimization techniques was utilized in the performance of this exam: Automated exposure control; adjustment of the mA and/or kV according to the patient's size; or use of an iterative reconstruction technique. Specific details can be referenced in the facility's radiology CT exam operational policy. CONTRAST: 75 mL Isovue-370 COMPARISON: None. FINDINGS: Visualized lung bases: There is a small amount scarring versus atelectasis in the inferior right middle lobe and lingula Hepatobiliary: There is a focal area of decreased attenuation adjacent to the falciform ligament in the left hepatic lobe which may be related to focal fatty infiltration although a hypoattenuating mass not totally excluded. the common hepatic duct appears mildly prominent at 6 mm. There is also mild prominence of the intrahepatic ducts Spleen: Negative. Adrenals: Negative. Pancreas: Negative. Kidneys ureters or bladder: There is a 2 mm nonobstructing calculus lower pole calyx of the right kidney. There is a round subcentimeter hypoattenuating l esion lower pole the left kidney may represent a cyst although is too small to characterize Genitalia: There is a 2.6 cm left ovarian cyst. There is a 6 mm round hypoattenuating lesion left uterine fundus may represent a small fibroid. There is prominent area of decreased attenuation within the cervix GI: The appendix is not definitively seen Vessels/spaces/nodes: Negative. Bones/soft tissues: There numerous surgical clips along the intra-abdominal wall. Additional findings: None pertinent. IMPRESSION: The common hepatic duct appears mildly prominent at 6 mm. Is also mild prominence of intrahepatic ducts. This could be further evaluated with ultrasound There is a focal area of decreased attenuation adjacent to the falciform ligament in the left hepatic lobe which is likely related to an area of focal fatty infiltration although other hypoattenuating mass not excluded such as a hemangioma . 2 mm nonobstructing calculus lower pole calyx of the right kidney Subcentimeter hypoattenuating lesion lower pole left kidney may represent a cyst although is too small to characterize 2.6 cm left ovarian cyst 6 mm hypoattenuating lesion left uterine fundus may represent a fibroid. There is a prominent area of decreased attenuation within the cervix. The diff erential diagnosis includes retained secretions or a mass lesion. This could also be evaluated with pelvic ultrasound Report Dictated By: Polly Thomas MD at 05/17/2018 5:00 PM Report E-Signed By: Polly Thomas MD at 05/17/2018 5:12 PM EXAMINATION: Focused right upper quadrant ultrasound COMPARISON: CT same day. HISTORY: Right flank pain for 3 days. Findings: Standard right upper quadrant abdominal ultrasound is performed. Pancreas: Poorly visualized and better evaluated on the earlier CT. Liver and portal vein: Focal fatty infiltration along the falciform ligament. Gallbladder and biliary system: No gallbladder stone or sludge. No wall thickening, pericholecystic fluid, or sonographic Dietrich's. The visualized common bile duct is not dilated. Visualized aorta and IVC: Better evaluated on the earlier CT. Kidneys: The right kidney measures 9.4 x 3.4 x 3.5 cm . Lower pole 3 mm nonobstructing stone. No renal mass. Ascites: None. IMPRESSION: 1. No findings of acute disease in the abdomen right upper quadrant. 2. Liver focal fatty infiltration along the falciform ligament, corresponding to the CT finding. 3. Right kidney lower pole 3 mm nonobstructing stone. Report Dictated By: Mikie Oconnor MD at 05/17/2018 7:00 PM Report E-Signed By: Mikie Oconnor MD at 05/17/2018 7:05 PM ED Course/Re-evaluation ED Course Patient is was admitted to a room and placed in a bed. History and physical were obtained. Differential diagnoses were considered. On examination lungs are clear, heart is regular, abdomen was soft and nontender. Patient did have tenderness to the posterior ribs. Patient was wearing a Lidoderm patch on examination. She states there is no improvement with that. An IV was started, a CBC, CMP, urinalysis, chest x-ray were done. The lab results were unremarkable. Chest x-ray showed no acute cardiopulmonary processes. I was concerned about possible kidney stone. Even though she was negative for hematuria. A CT scan of the abdomen and pelvis was done. Results were negative except for a dilated he patic biliary duct. It measured [address] scan. There was some hypoattenuating areas in the uterus as well as the pelvis. I believe is likely secondary to her uterine ablation she had done 9 months ago. Patient is not having any pelvic pain and so those ultrasounds were deferred. An ultrasound was done of the gallbladder. There was some hepatic steatosis was noted, otherwise unremarkable. I did discuss the case with Dr. Brower, general surgeon, who is his recommendation to have a outpatient MRCP and possible hiatus skin then. He recommended the patient follow-up with him in the clinic and he'll be willing to order those tests that time. I discussed the findings with the patient. With her having significant pain we will go ahead and prescribe her some tramadol. Patient has stated that she did not have any improvement with the oxycodone. We will try the tramadol as it does impact both the mu receptors as well as the serotonin reuptake receptors. It is my hope that the different approach to the pain will be more effective. She is to follow-up with Dr. Brower. I encouraged her to call him tomorrow to make an appointment. She verbalized understanding and agreement with plan. Decision to Disposition Date: May 17, 2018 Decision to Disposition Time: 19:23 Depart Departure Latest Vital Signs Vital Signs Date Time Temp Pulse Resp B/P (MAP) Pulse Ox O2 Delivery O2 Flow Rate FiO2 05/17/18 19:30 60 94 05/17/18 19:00 125/48 (73) 05/17/18 15:14 98.0 16 Room Air Impression: Primary Impression: Right flank pain Condition: Improved Disposition: HOME OR SELF-CARE Referrals: HEMA PALMER (PCP) LEONARDO BROWER MD New Scripts Tramadol Hcl (TRAMADOL HCL) 50 Mg Tablet 50 MG PO Q4-6H PRN for PAIN, #12 TAB Prov: RASHMI MACHUCA 05/17/18 Patient Instructions: Flank Pain (ED) Additional Instructions: Limit activity by pain. Get plenty of rest. Take the medication as prescribed. Follow up with Dr. Brower, Call tomorrow to make an appointment. Return to the ER if condition worsens. RASHMI MACHUCA May 17, 2018 15:36
[2018-05-17 15:48] LABS: PLATELET COUNT, AUTOMATED 374 K/uL (150-450)
--- NOTE | 2018-05-17 16:08 | EKG ---
FACILITY: [facility] - [place] PATIENT NAME: MELITA SWENSON : [id number] MR: [id number] V: [id number] EXAM DATE: ORDERING PHYSICIAN: RASHMI MACHUCA TECHNOLOGIST: HEIDY Test Reason : PAIN TO RIGHT SIDE Blood Pressure : / mmHG Vent. Rate : 062 BPM Atrial Rate : 062 BPM P-R Int : 126 ms QRS Dur : 100 ms QT Int : 422 ms P-R-T Axes : 049 068 051 degrees QTc Int : 428 ms Sinus rhythm Nonspecific interventricular conduction delay Possible left atrial enlargement Confirmed by CHAZ SEXTON ([id number]) on 05/18/2018 5:58:01 AM Referred By: BRIGETTE Confirmed By:CHAZ SEXTON
--- NOTE | 2018-05-17 16:14 | RADIOLOGY IMAGING REPORT ---
FACILITY: [facility] - [place] PATIENT NAME: Mica Meehan : 1980 MR: [id number] V: [id number] EXAM DATE: ORDERING PHYSICIAN: RASHMI MACHUCA TECHNOLOGIST: Location: [facility] [place] Patient: Mica Meehan : 1980 Visit/Account:[id number] Date of Sevice: 05/17/2018 Exam type: CHEST PA LAT History: Right-sided back pain Comparison: June 01, 2017. Findings: The lungs are free of acute effusions, infiltrates or edema. The cardiac silhouette is normal in siz e. Trachea is in midline. There Is a gentle dextroconvex scoliosis to the thoracic spine IMPRESSION: 1. No acute cardiopulmonary process is seen Report Dictated By: Polly Thomas MD at 05/17/2018 4:08 PM Report E-Signed By: Polly Thomas MD at 05/17/2018 4:09 PM WSN:[email or web address]
[2018-05-17] MEDS ORDERED: IOPAMIDOL 76% 100 ML INFUS BTL 100 ML ONE (16:34)
--- NOTE | 2018-05-17 17:17 | RADIOLOGY IMAGING REPORT ---
FACILITY: [facility] - [place] PATIENT NAME: Mica Meehan : 1980 MR: [id number] V: [id number] EXAM DATE: ORDERING PHYSICIAN: RASHMI MACHUCA TECHNOLOGIST: Location: [facility] Patient: Mica Meehan : 1980 Visit/Account:[id number] Date of Sevice: 05/17/2018 CT ABDOMEN PELVIS W/ CON HISTORY: right flank pain TECHNIQUE: Following administration of IV contrast contiguous axial images acquired through the abdom en/pelvis. Coronal and sagittal reformatting also performed.Dose Lowering Technique One of the following dose optimization techniques was utilized in the performance of this exam: Autom ated exposure control; adjustment of the mA and/or kV according to the patient's size; or use of an i terative reconstruction technique. Specific details can be referenced in the facility's radiology C T exam operational policy. CONTRAST: 75 mL Isovue-370 COMPARISON: None. FINDINGS: Visualized lung bases: There is a small amount scarring versus atelectasis in the inferior right mid dle lobe and lingula Hepatobiliary: There is a focal area of decreased attenuation adjacent to the falciform ligament in the left hepatic lobe which may be related to focal fatty infiltration although a hypoattenuating mas s not totally excluded. the common hepatic duct appears mildly prominent at 6 mm. There is also mild prominence of the intr ahepatic ducts Spleen: Negative. Adrenals: Negative. Pancreas: Negative. Kidneys ureters or bladder: There is a 2 mm nonobstructing calculus lower pole calyx of the right kid larissa. There is a round subcentimeter hypoattenuating lesion lower pole the left kidney may represent a cyst although is too small to characterize Genitalia: There is a 2.6 cm left ovarian cyst. There is a 6 mm round hypoattenuating lesion left u terine fundus may represent a small fibroid. There is prominent area of decreased attenuation within the cervix GI: The appendix is not definitively seen Vessels/spaces/nodes: Negative. Bones/soft tissues: There numerous surgical clips along the intra-abdominal wall. Additional findings: None pertinent. IMPRESSION: The common hepatic duct appears mildly prominent at 6 mm. Is also mild prominence of intrahepatic du cts. This could be further evaluated with ultrasound There is a focal area of decreased attenuation adjacent to the falciform ligament in the left hepatic lobe which is likely related to an area of focal fatty infiltration although other hypoattenuating m ass not excluded such as a hemangioma . 2 mm nonobstructing calculus lower pole calyx of the right kidney Subcentimeter hypoattenuating lesion lower pole left kidney may represent a cyst although is too smal l to characterize 2.6 cm left ovarian cyst 6 mm hypoattenuating lesion left uterine fundus may represent a fibroid. There is a prominent area of decreased attenuation within the cervix. The differential diagnosis inc ludes retained secretions or a mass lesion. This could also be evaluated with pelvic ultrasound Report Dictated By: Polly Thomas MD at 05/17/2018 5:00 PM Report E-Signed By: Polly Thomas MD at 05/17/2018 5:12 PM WSN:[email or web address]
[2018-05-17 19:00] VITALS: BP 125/48
--- NOTE | 2018-05-17 19:08 | RADIOLOGY IMAGING REPORT ---
FACILITY: [facility] PATIENT NAME: Mica Meehan : 1980 MR: [id number] V: [id number] EXAM DATE: ORDERING PHYSICIAN: RASHMI MACHUCA TECHNOLOGIST: Location: [facility] Patient: Mica Meehan : 1980 Visit/Account:[id number] Date of Sevice: 05/17/2018 EXAMINATION: Focused right upper quadrant ultrasound COMPARISON: CT same day. HISTORY: Right flank pain for 3 days. Findings: Standard right upper quadrant abdominal ultrasound is performed. Pancreas: Poorly visualized and better evaluated on the earlier CT. Liver and portal vein: Focal fatty infiltration along the falciform ligament. Gallbladder and biliary system: No gallbladder stone or sludge. No wall thickening, pericholecystic f luid, or sonographic Dietrich's. The visualized common bile duct is not dilated. Visualized aorta and IVC: Better evaluated on the earlier CT. Kidneys: The right kidney measures 9.4 x 3.4 x 3.5 cm . Lower pole 3 mm nonobstructing stone. No nicci al mass. Ascites: None. IMPRESSION: 1. No findings of acute disease in the abdomen right upper quadrant. 2. Liver focal fatty infiltration along the falciform ligament, corresponding to the CT finding. 3. Right kidney lower pole 3 mm nonobstructing stone. Report Dictated By: Mikie Oconnor MD at 05/17/2018 7:00 PM Report E-Signed By: Mikie Oconnor MD at 05/17/2018 7:05 PM WSN:[id number]
[2018-05-17] MEDS ORDERED: TRAM-420 PO (19:26)
== END 2018-05-17 19:40 | disposition home or self-care (01) ==
LOC: ER 15:17
DX: M54.9 Dorsalgia, unspecified (principal); E03.9 Hypothyroidism, unspecified; F32.9 Major depressive disorder, single episode, unspecified; Z87.891 Personal history of nicotine dependence; R07.81 Pleurodynia
CPT/HCPCS: 71046; 74177; 76705; 81001; 85025; 85651; 86140; 93005; 96361; 96374; 99284; J1885; J7030; Q9967; 82040; 82247; 82310; 82374; 82435; 82565; 82947; 84075; 84132; 84155; 84295; 84450; 84460; 84520